=== PATIENT | female | born 1940 | race Caucasian/White ===

== ENCOUNTER 2016-12-06 12:25 | Outpatient (CLI) | payer MEDICARE ==
--- NOTE | 2016-12-06 16:24 | CT ---
CERVICAL SPINE CT WITHOUT CONTRAST: 12/06/2016 HISTORY: Right-sided neck pain and arm pain with low back pain radiating down the left hip and left leg. Fal l. Pain. COMPARISON: None. TECHNIQUE: Serial axial CT imaging is obtained at 2 mm intervals, from the skull base through the lung apices, without contrast. Coronal and sagittal reformatted imaging obtained. FINDINGS: The imaged lung apices are unremarkable, aside from mild fibronodular pleural thickening in the bila teral lung apices. The C1 ring is intact. There is degenerative change at the atlantoaxial interspace. The craniocervical junction, dens, C1- C2 articulation, occipital condyles, and cervicothoracic junction demonstrate no acute findings. Th ere is straightening of the normal cervical lordosis. There is degenerative dextroscoliosis centere d at the C5-C6 level. There is minimal anterolisthesis of C7 on T1, measuring approximately 3 mm. Evaluation for central canal and/or neural foraminal stenosis is limited on routine CT. C2-C3: No osseous cause of significant central canal or neural foraminal stenosis. C3-C4: There is disk space narrowing and minimal disk bulge with a mild posterior osteophyte. No o sseous cause of significant central canal or neural foraminal stenosis. C4-C5: There is disk space narrowing, disk desiccation, and degenerative endplate change with anter ior osteophyte formation. There is posterior osteophyte with at least mild central canal stenosis. There is prominent uncovertebral osteophyte formation on the left with extension into the left neur al foramen and associated significant left neural foraminal stenosis. C5-C6: There is disk space narrowing and degenerative endplate change with a disk osteophyte comple x. The posterior osteophyte causes at least mild to moderate central canal stenosis. There is bila teral facet and uncovertebral osteophyte formation, right greater than left. There is osteophyte en croachment on the right neural foramen causing significant, probably moderate to severe right neural foraminal stenosis. Mild left neural foraminal stenosis is suspected. C6-C7: There is disk space narrowing and a posterior osteophyte. There is bilateral uncovertebral and facet osteophyte formation with mild central canal and bilateral neural foraminal stenosis. C7-T1: Mild bilateral facet hypertrophy with probable mild bilateral neural foraminal stenosis. There is no worrisome lytic or blastic bone lesion seen. No acute fracture or evidence of dislocati on is seen. Incidental note is made of a round soft tissue density mass, measuring 1.9 cm, with Hounsfield units of approximately 55, to the left of the trachea, in the expected location of the left thyroid bed. This suggests a solid mass, probably thyroid in nature. Recommend dedicated thyroid ultrasound. IMPRESSION: 1. Prominent multilevel degenerative change seen within the cervical spine. The most significant f indings are osteophyte encroachment on the neural foramina and associated neural foraminal stenosis on the left at C4-C5 and on the right at C5-C6. Posterior osteophyte causes area of central canal s tenosis as well, most prominent at C5-C6. 2. Round soft tissue lesion in the expected location of the left thyroid bed. This measures up to 1.9 cm. Thyroid ultrasound advised. CODE T POS: [facility]
--- NOTE | 2016-12-06 16:52 | CT ---
CT OF THE THORACIC SPINE: 12/06/2016 HISTORY: Fall in August. Right-sided neck and arm pain. Low back pain with left hip and leg radiculopathy. COMPARISON: None. TECHNIQUE: Serial axial CT imaging at 2 mm intervals from the thoracic inlet through the upper lumbar spine pro vided without contrast. Coronal and sagittal reformatted imaging obtained. FINDINGS: Evaluation of the nonosseous structures is limited without contrast media. There is a round soft tissue structure, measuring 1.8 cm, in the left thyroid bed, which may represe nt a solid thyroid lesion. Evaluation of the lung parenchyma is somewhat limited on the basis of motion artifact and demonstrat es no acute finding. There is atherosclerotic calcification of the aortic arch and the thoracic aorta. There are scatter ed atherosclerotic calcifications of the abdominal aorta and the great vessels as well. A cyst is seen in the right lobe of the liver, measuring 4 cm. T1-T2: No osseous cause of significant central canal or neural foraminal stenosis. T2-T3: There is right-sided facet hypertrophy with mild right neural foraminal stenosis. No signif icant central canal or left neural foraminal stenosis. T3-T4: Mild posterior osteophyte formation and anterior osteophyte formation with no osseous cause of significant central canal or neural foraminal stenosis. T4-T5: No osseous cause of significant central canal or neural foraminal stenosis. T5-T6: No osseous cause of significant central canal or neural foraminal stenosis. There is a vacu um disk at the T5-T6 level. There is a superior endplate fracture involving the T6 vertebral body, with approximately 40% loss o f vertebral body height. There is no retropulsion. T6-T7: No osseous cause of significant central canal or neural foraminal stenosis. T7-T8: Mild facet hypertrophy on the left with no significant central canal stenosis or neural fora josr stenosis on the basis of an osseous finding. T8-T9: No osseous cause of significant central canal or neural foraminal stenosis. T9-T10: Disk space narrowing and vacuum disk present with mild anterior osteophyte formation. Prob able mild right neural foraminal stenosis. No central canal or left neural foraminal stenosis. T10-T11: Disk space narrowing and mild bilateral facet hypertrophy. No osseous cause of significan t central canal or neural foraminal stenosis. T11-T12: No osseous cause of significant central canal or neural foraminal stenosis. Right facet h ypertrophy present. T12-L1: No osseous cause of significant central canal or neural foraminal stenosis. Frontal imaging demonstrates significant levoscoliosis centered at the T10-T11 region. IMPRESSION: 1. Superior endplate/anterior wedge compression fracture of T6 with approximately 40% loss of verte bral body height anteriorly. No retropulsion. 2. Question lesion in the thyroid bed on the left. Recommend thyroid ultrasound. 3. Multilevel degenerative change within the lumbar spine with associated levoscoliosis. CODE T POS: [facility]
--- NOTE | 2016-12-06 18:49 | RAD ---
LUMBAR SPINE FOUR VIEWS: 12/06/16 HISTORY: Low back pain. Recent fall. FINDINGS: There are five lumbar type vertebrae. Pedicles are intact. Severe rightward convexed rotatory scolio tic curvature is apparent on the frontal view. Vertebral body heights and AP alignment are maintaine d. No abnormal translational motion is evident upon flexion or extension. There is prominent osteoph ytosis throughout the vertebral bodies and facets. Calcification is noted throughout the arterial st ructures. IMPRESSION: 1. Lumbar spondylosis with severe rightward convexed rotatory scoliotic curvature. 2. Atherosclerosis. POS: [facility]
--- NOTE | 2016-12-06 19:00 | RAD ---
CERVICAL SPINE FOUR VIEWS 12/06/16 HISTORY: Fall. Neck injury. FINDINGS: There is reversal of the normal lordotic curvature of the cervical spine. Multilevel disc space narr owing is present with prominent osteophytosis. There is 0.5 cm retrolisthesis at the C5-6 level. Cer vical thoracic junction is intact. Prominent rightward convexed curvature is present on the frontal view. No acute fracture or dislocation are visible. No abnormal translational motion is evident upo n flexion or extension. Calcifications is apparent within the arterial structures. IMPRESSION: 1. Prominent cervical spondylosis, most pronounced at the C5-6 level. 2. Atherosclerosis. POS: [facility]
--- NOTE | 2016-12-06 21:51 | MRI ---
LUMBAR SPINE MRI NONCONTRAST: 12/06/16 INDICATION: Low back pain, recent fall with associated lumbar radiculopathy. FINDINGS: There is localized bone marrow edema involving the inferior L1, superior L2 end plates without inter vening disc space edema. The L1-2 disc space is mildly narrowed. There is disc space narrowing of th e remaining lumbar spine levels as well. No evidence of acute compression fracture or significant monreal bluxation. The conus medullaris terminates at the L1-2 level. There is right convexity scoliosis of the lumbar spine epicenter at the L2 level. Mild to moderate multilevel bilateral facet hypertrophy is present. L5-S1: There is mild effacement of the ventral thecal sac due to disc osteophyte complex. There is m ild to moderate right and mild left neural foraminal narrowing. L4-5: There is mild narrowing of the central canal on the basis of disc osteophyte complex with mild narrowing of the right neural foramen. No high grade left foraminal stenosis. L3-4: Mild to moderate central canal narrowing on the basis of broad based disc osteophyte complex w ith mild left neural foraminal narrowing. No high grade right foraminal narrowing. L2-3: There is mild narrowing of the central canal. Moderate left subarticular stenosis present with asymmetric osteophyte with potential for impingement upon the left L3 nerve root. There is mild lef t foraminal narrowing. No high grade right foraminal narrowing. L1-2: There is mild narrowing of the central canal on the basis of disc osteophyte complex. Mild yasemin ateral neural foraminal narrowing. IMPRESSION: 1. There is multilevel degenerative change at the lumbar spine as outlined above. 2. Evidence of Modic type I degenerative end plate signal alteration at the L1-2 level. POS: [facility]
== END 2016-12-06 12:26 | disposition home or self-care (01) ==
LOC: SCSMRI 12:25
PROVIDERS: ATTEND Surgery
DX: M47.22 Other spondylosis with radiculopathy, cervical region (principal); M47.26 Other spondylosis with radiculopathy, lumbar region; M54.14 Radiculopathy, thoracic region
CPT/HCPCS: 72050; 72120; 72125; 72128; 72148

== ENCOUNTER 2020-11-11 10:54 | Outpatient (CLI) | payer MEDICARE ==
[2020-11-11 12:41] LABS: Hemoglobin 14.5 g/dL (12.0-15.5); Mean Corpuscular Volume 96.8 fl (81.6-98.3); Mean Platelet Volume 12.7 fl (7.4-10.4); Platelet Count 218 10x3/uL (150-450); RBC Distribution Width 13.5 % (11.5-14.5); Red Blood Cell (RBC) Count 4.68 10x6/uL (3.90-5.03); White Blood Cell (WBC) Count 6.9 10x3/uL (3.5-10.5)
[2020-11-11 13:02] LABS: Anion Gap 15 mmol/L (10-20); BUN (Urea Nitrogen) 9 mg/dL (9.8-20.1); Calc. Creatinine Clearance 0 mL/min (70-130); Calcium 10.3 mg/dL (7.8-10.44); Carbon Dioxide 29 mmol/L (23-31); Chloride 98 mmol/L (98-107); Glucose 94 mg/dL (83-110); Potassium 4.1 mmol/L (3.5-5.1); Sodium 138 mmol/L (136-145)
[2020-11-11 13:08] LABS: PTT 28.7 sec (22.0-33.0); Prothrombin Time 10.9 sec (9.5-12.1)
[2020-11-11 20:19] LABS: SARS-CoV-2 PCR by NAA Not Detected (NotDetected)
== END 2020-11-11 10:55 | disposition home or self-care (01) ==
LOC: LABBT 10:54
PROVIDERS: ATTEND Surgery
DX: Z01.818 Encounter for other preprocedural examination (principal); M54.16 Radiculopathy, lumbar region; M54.50 Low back pain, unspecified; M41.9 Scoliosis, unspecified; Z20.822 Contact with and (suspected) exposure to COVID-19
CPT/HCPCS: 80048; 85027; 85610; 85730; 93005; U0003; U0005; 93010

== ENCOUNTER 2020-11-16 10:01 | Inpatient (IN) | payer MEDICARE ==
[2020-11-16] MEDS ORDERED: Thrombin 5000 UNITS/5 ML VIAL ONE (12:28)
[2020-11-16] MEDS ORDERED: Fentanyl 100 MCG/2 ML VIAL ONE ×4 (12:34→16:44)
[2020-11-16] MEDS ORDERED: Rocuronium Bromide 10 MG/ML (10ML VIAL) ONE (13:08)
[2020-11-16] MEDS ORDERED: Lidocaine 1% PF 5 ML VIAL ONE (13:08)
[2020-11-16] MEDS ORDERED: Ketorolac Tromethamine 30 MG/ML VIAL ONE (13:08)
[2020-11-16] MEDS ORDERED: PROPOFOL 200 MG/20 ML VIAL ONE (13:08)
[2020-11-16] MEDS ORDERED: ePHEDrine 50 MG/ML VIAL ONE (13:08)
[2020-11-16] MEDS ORDERED: Ondansetron PF 4 MG/2 ML Vial ONE (13:08)
[2020-11-16] MEDS ORDERED: Glycopyrrolate 0.2 MG/ML 5 ML SYRINGE ONE (13:08)
[2020-11-16] MEDS ORDERED: PHENYLEPHRINE-NS 100 MCG/ML 10 ML SYRINGE ONE (13:08)
[2020-11-16] MEDS ORDERED: Ondansetron HCl/PF 4 MG/2 ML Vial IVP PRN (14:24)
[2020-11-16] MEDS ORDERED: Promethazine HCl 25 MG/ML VIAL IVPB PRN (14:24)
[2020-11-16] MEDS ORDERED: Promethazine HCl 25 MG/ML VIAL IM PRN (14:24)
[2020-11-16] MEDS ORDERED: Morphine 2 MG/ML VIAL SLOW IVP PRN (14:37)
[2020-11-16] MEDS ORDERED: Acetaminophen/Codeine 30-300mg Tablet PO PRN (14:37)
[2020-11-16] MEDS ORDERED: HYDROcodone/Acetaminophen 7.5/325 mg Tablet PO PRN (14:37)
[2020-11-16] MEDS ORDERED: Acetaminophen 325 MG TAB PO PRN (14:37)
[2020-11-16] MEDS ORDERED: hydrALAZINE 20 MG/ML VIAL SLOW IVP PRN (14:40)
[2020-11-16] MEDS ORDERED: Morphine 4 MG/ML VIAL ONE ×2 (16:43→19:35)
[2020-11-16] MEDS: Sodium Chloride 0.9% 1,000 ML IV SCH (20:00)
[2020-11-16] MEDS: Gabapentin 300 MG CAP PO SCH ×2 (22:39→23:34)
[2020-11-16] MEDS: Carvedilol 6.25 MG TAB PO SCH (22:39)
[2020-11-16] MEDS: CEFAZOLIN 2 GM, Admixture Fee 1 EACH in Sodium Chloride 0.9% 100 ML IVPB SCH (22:41)
[2020-11-16] MEDS: traMADol HCl 50 MG TAB PO PRN (23:38)
[2020-11-16] MEDS: tiZANidine HCl 4 MG TAB PO PRN (23:38)
[2020-11-17 01:11] VITALS: BMI 292612.7
[2020-11-17] MEDS ORDERED: Cepastat Lozenges 1 LOZ PO PRN (02:57)
[2020-11-17] MEDS: Sodium Chloride 0.9% 1,000 ML IV SCH ×2 (06:05→18:24)
[2020-11-17] MEDS: CEFAZOLIN 2 GM, Admixture Fee 1 EACH in Sodium Chloride 0.9% 100 ML IVPB SCH (06:09)
[2020-11-17] MEDS: Levothyroxine Sodium 100 MCG TAB PO SCH (06:09)
[2020-11-17] MEDS: Gabapentin 300 MG CAP PO SCH ×3 (09:47→21:35)
[2020-11-17] MEDS: traMADol HCl 50 MG TAB PO PRN ×2 (09:47→17:21)
[2020-11-17] MEDS ORDERED: Ondansetron PF 4 MG/2 ML Vial IVP PRN (10:42)
[2020-11-17] MEDS: Carvedilol 6.25 MG TAB PO SCH ×2 (11:45→21:42)
[2020-11-17] MEDS: tiZANidine HCl 4 MG TAB PO PRN (12:04)
[2020-11-17] MEDS ORDERED: Ketorolac Tromethamine 30 MG/ML VIAL IVP PRN (16:21)
[2020-11-17] MEDS ORDERED: Acetaminophen 325 MG TAB PO PRN (16:22)
[2020-11-17] MEDS ORDERED: Dexamethasone 4 mg/ml Vial SLOW IVP SCH (17:15)
[2020-11-18] MEDS: Levothyroxine Sodium 100 MCG TAB PO SCH (05:32)
[2020-11-18] MEDS: Sodium Chloride 0.9% 1,000 ML IV SCH (05:43)
[2020-11-18] MEDS: Carvedilol 6.25 MG TAB PO SCH (08:35)
[2020-11-18] MEDS: Gabapentin 300 MG CAP PO SCH (08:35)
[2020-11-18] MEDS: traMADol HCl 50 MG TAB PO PRN (10:02)
[2020-11-18 12:51] VITALS: BP 98/58; TEMP 97.7
== END 2020-11-18 14:17 | disposition home or self-care (01) | DRG 517 ==
LOC: SDC 10:01 → SURG A 14:40 → OBSVTOIN 11-18 08:44
PROVIDERS: ADMIT Surgery; ATTEND Surgery
PROC: 01NB0ZZ Release Lumbar Nerve, Open Approach (ICD-10-PCS; principal; 2020-11-16)
DX: M54.16 Radiculopathy, lumbar region (principal); M41.86 Other forms of scoliosis, lumbar region; E03.9 Hypothyroidism, unspecified; I10 Essential (primary) hypertension; Z90.710 Acquired absence of both cervix and uterus; Z79.899 Other long term (current) drug therapy; Z79.890 Hormone replacement therapy
CPT/HCPCS: 76000; 93970; 96374; 96375; 96376; G0378; J0690; J1100; J1885; J2270; J2405; J3010; J3370; J3490; J7050